=== PATIENT | male | born 1955 | race Caucasian/White ===

== ENCOUNTER 2019-11-08 15:40 | Emergency (ER) | payer OTHER, MEDICARE ==
[~2019-11-08] VITALS: Ht 177.8 cm; Wt 113.4 kg
[2019-11-08 15:40] VITALS: BP_SYST 185
--- NOTE | 2019-11-08 15:45 | NUR ---
Patient triaged and placed in waiting room. VSS and patient appears in no acute distress at this time. Accompanied by , awaiting available bed, and MD notified of need for MSE.
--- NOTE | 2019-11-08 17:12 | NUR ---
BROUGHT BACK TO BED #8 AND REPORT GIVEN TO ROSA
--- NOTE | 2019-11-08 17:20 | NUR ---
Patient arrived via POV, AAOx4, and ambulatory with steady gait. Patient c/c of rash like abscesses to right knee. Patient states he has had it "for awhile," but now they are spreading. Patient concerned regarding flesh eating bacteria. Patients knee has no swelling, redness, and no pain with movement. 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 Will continue to follow up and monitor.
--- NOTE | 2019-11-08 17:24 | NUR ---
ER at bedside examining patient.
[2019-11-08 17:42] VITALS: BP_SYST 144
--- NOTE | 2019-11-08 17:42 | NUR ---
Patient given written and verbal discharge instructions and verbalizes understanding. ER MD discussed with patient the results and treatment provided. Patient in stable condition. ID arm band removed. Rx of Keflex, Bactrim, and Bactroban given. Patient educated on pain management and to follow up with PMD. Pain Scale 0/10. Opportunity for questions provided and answered. Medication side effect fact sheet provided.
== END 2019-11-08 17:42 | disposition home or self-care (01) ==
LOC: SED 15:40
DX: M00.861 Arthritis due to other bacteria, right knee (principal); Z96.653 Presence of artificial knee joint, bilateral; Z96.698 Presence of other orthopedic joint implants
CPT/HCPCS: 99283

== ENCOUNTER 2022-09-11 08:59 | Emergency (ER) | payer OTHER, MEDICARE ==
[~2022-09-11] VITALS: Ht 180.3 cm; Wt 108.9 kg
[2022-09-11 09:00] VITALS: BP_SYST 151
--- NOTE | 2022-09-11 09:00 | NUR ---
Patient triaged and placed in waiting room. VSS and patient appears in no acute distress at this time. Accompanied by FAMILY, awaiting available bed, and MD notified of need for MSE.
--- NOTE | 2022-09-11 09:12 | NUR ---
PT STATES SLIGHT SWELLING NOTED TO LEFT UPPER EYELID FOR LAST 2 DAYS, WORSENING TODAY. STATES PAIN IS 3/10. SLIGHT BLURRY VISION
--- NOTE | 2022-09-11 10:55 | NUR ---
Patient to ER bed H1 to gown for evaluation. Side rails up.
[2022-09-11] MEDS ORDERED: CEPH-548 PO (10:57)
[2022-09-11] MEDS ORDERED: TOBR3.5O25 OP (10:57)
--- NOTE | 2022-09-11 10:58 | NUR ---
ER at bedside examining patient.
--- NOTE | 2022-09-11 11:01 | NUR ---
Patient given written and verbal discharge instructions and verbalizes understanding. ER MD discussed with patient the results and treatment provided. Patient in stable condition. ID arm band removed. Rx of KEFLEX AND TOBRAMYCIN given. Patient educated on pain management and to follow up with PMD. Pain Scale 0. Opportunity for questions provided and answered. Medication side effect fact sheet provided.
[2022-09-11 11:03] VITALS: BP_SYST 151
== END 2022-09-11 11:01 | disposition home or self-care (01) ==
LOC: SED 08:59
DX: H01.004 Unspecified blepharitis left upper eyelid (principal); H57.12 Ocular pain, left eye; Z79.899 Other long term (current) drug therapy
CPT/HCPCS: 99283